=== PATIENT | female | born 1930 | race African-American/Black ===

== ENCOUNTER 2018-09-26 11:29 | Emergency (ER) | payer MEDICARE, MEDICAID | END 2018-09-26 12:20 | disposition home or self-care (01) | LOC: ERS 11:29 | DX: L50.9 Urticaria, unspecified (principal); I10 Essential (primary) hypertension; E78.5 Hyperlipidemia, unspecified; K21.9 Gastro-esophageal reflux disease without esophagitis | CPT/HCPCS: 99282 ==